=== PATIENT | male | born 1965 | race Caucasian/White ===

== ENCOUNTER → 2019-03-07 | Outpatient (CLI) | payer MEDICARE, MEDICAID | LOC: COL.VAS 10:44 | DX: I65.22 Occlusion and stenosis of left carotid artery (principal); Z86.73 Personal history of transient ischemic attack (TIA), and cerebral infarction without residual deficits | CPT/HCPCS: A9585 ==

== ENCOUNTER 2020-07-20 10:26 | Observation (INO) | payer MEDICARE, MEDICAID ==
[2020-07-20] VITALS (10 sets, daily range): BP systolic 127–177; BP diastolic 64–107; PULSE 80–97; TEMP 97.6–98.4
[~2020-07-20] VITALS: Ht 175.3 cm; Wt 73.9 kg
[2020-07-20] MEDS ORDERED: ALBUTEROL0.83 MG/ML IH (12:13)
[2020-07-20] MEDS ORDERED: PROVENTIL0.09 MG/A1 IH (12:14)
[2020-07-20] MEDS ORDERED: NEUPRO4 MG/24 HR TD (12:15)
[2020-07-20] MEDS ORDERED: PROTONIX 40MG T40 MG PO (12:15)
[2020-07-20] MEDS ORDERED: PRINIVIL40 MG PO (12:16)
[2020-07-20] MEDS ORDERED: SEROQUEL50 MG PO (12:17)
--- NOTE | 2020-07-20 15:10 | NUR ---
PATIENT ARRIVED TO ROOM 345 POST-OP VIA BED. PATIENT ASSISTED UP TO COMMODE AT BEDSIDE. POST-OP MONITORING STABLE. WILL CONTINUE TO MONITOR.
--- NOTE | 2020-07-20 15:50 | NUR ---
PLACING CHEST TUBE AT BEDSIDE.
--- NOTE | 2020-07-20 17:40 | NUR ---
SHIFT ASSESSMENT COMPLETED AT THIS TIME.
--- NOTE | 2020-07-20 18:55 | NUR ---
POST-OP VSS AND COMPLETE. KARYN PRESENT AT THE BEDSIDE. SHIFT REPORT GIVEN TO ALEAH POP.
--- NOTE | 2020-07-20 21:00 | NUR ---
Patient resting in bed at this time. 5 lap sites to his abdomen, edges well approximated. Heimlich chest tube to right chest, dressing clean, dry, and intact. Some complaints of pain to his chest tube site. PRN norco for pain. Patient tolerating his clear liquid diet with no nausea. Bed alarm on and call light in reach.
[2020-07-21 00:21] VITALS: BP 129/58; PULSE 88; TEMP 98.2
[2020-07-21 04:31] VITALS: BP 115/63; PULSE 88; TEMP 98.6
--- NOTE | 2020-07-21 06:45 | NUR ---
awake resting in bed, bedside shift report received from ALEAH Lazcano
[2020-07-21 07:20] LABS: BASO % 0.2 % (0.0-2.0); EOS % 0.1 % (0-4.0); GRAN % 80.8 % (42.2-75.2); HEMATOCRIT 39.4 % (42.0-52.0); HEMOGLOBIN 13.2 g/dl (13.5-18.0); LYMPH # 1.8 (1.2-3.4); LYMPH % 11.4 % (20.0-51.0); MEAN CELL VOLUME 86 fl (80.0-100.0); MEAN CORPUSCULAR HEMOGLOBIN 29 pg (27.0-31.0); MEAN CORPUSCULAR HGB CONC 34 g/dl (33.0-37.0); MEAN PLATELET VOLUME 11.1 fl (7.4-10.4); MONO # 1.1 (0.1-0.6); PLATELET COUNT 253 K/mm3 (130-400); RED BLOOD COUNT 4.61 M/mm3 (4.20-5.60); REDCELL DISTRIBUTION WIDTH-CV 13.5 % (11.5-14.5)
[2020-07-21 07:21] VITALS: BP 140/81; PULSE 78; TEMP 98.7
--- NOTE | 2020-07-21 07:40 | NUR ---
resting in bed, full assessment completed, see interventions for further info, denies chest pain or shortness of breath, hemilich valve tube remains in place, c/o pain 310 to abdomen, port sites are CD&I, umbilical incision with some redness around site, denies needs
[2020-07-21 07:44] LABS: ALBUMIN 3.5 gm/dL (3.5-5.0); BILIRUBIN,TOTAL 0.5 mg/dL (0.0-1.0); CALCIUM 9.1 mg/dL (8.4-10.2); CREATININE, serum 0.99 (0.66-1.25); POTASSIUM 3.8 mmol/L (3.4-5.0); TOTAL PROTEIN 6.3 gm/dL (6.4-8.2)
--- NOTE | 2020-07-21 09:15 | NUR ---
sitting up in bed having clear liquid breakfast, taking without difficulty
--- NOTE | 2020-07-21 09:40 | NUR ---
Initial visit; Patient thanked [employer] for looking in on him and offering God's blessings.
--- NOTE | 2020-07-21 10:02 | NUR ---
DENIZ met with the patient to discuss discharge plan. The patient lives in [place] with his friend, Michaela. He reports independence with ADLs and does not have any DME. He states that he does have a wheelchair ramp. The patient's PCP is Dr. Aden Salguero at the [facility] and he receives his medications from the [facility] in . He reports no difficulties obtaining his meds. The patient's neice, Enedina Clay, then entered the room. The patient does not have a DPOA-HC in EMR, but he states that he does have one completed and that it designates Enedina. Enedina lives in [place], [place]. Enedina states that she will be up here to help the patient for however long she needs to. The patient reports that his PCP's office should have a copy of his DPOA-HC. SW contacted the patient's PCP's office and requested a copy. The patient plans to return home with his friend upon discharge. No additional needs at this time. *Discharge plan: home with friend and niece support*
--- NOTE | 2020-07-21 10:15 | NUR ---
resting in bed, visiting with family
[2020-07-21 11:43] VITALS: BP 154/92; PULSE 96; TEMP 98.6
--- NOTE | 2020-07-21 11:48 | NUR ---
patient has been a high fall risk, he continues to get out of bed and ambulate to bathroom independently, observed him ambulating and he ambulated in [place] with nurse beside him, risk assessment redone and he is now not a high fall risk
--- NOTE | 2020-07-21 13:45 | NUR ---
Dr Claire in and chest tube removed, he tolerated it well, site covered with vaseline guaze and tegaderm by Dr Claire, will plan discharge
[2020-07-21] MEDS ORDERED: ZOFRAN ODT4 MG PO (14:04)
[2020-07-21] MEDS ORDERED: NORCO 325 MG-51 TAB PO (14:04)
[2020-07-21] MEDS ORDERED: DOXYCYCLINE HY100 MG PO (14:05)
--- NOTE | 2020-07-21 14:30 | NUR ---
discharge instructions given to patient and his daughter, verbalizes understanding
--- NOTE | 2020-07-21 14:47 | NUR ---
discharged per WC
== END 2020-07-21 14:47 | disposition home or self-care (01) ==
LOC: SDCO 10:26 → SURG 15:10 → SDCO 07-21 09:03 → SURG 07-21 09:04
PROVIDERS: ADMIT Surgery
DX: K42.9 Umbilical hernia without obstruction or gangrene (principal); K44.9 Diaphragmatic hernia without obstruction or gangrene; J95.811 Postprocedural pneumothorax; E78.5 Hyperlipidemia, unspecified; F32.9 Major depressive disorder, single episode, unspecified; F41.9 Anxiety disorder, unspecified; I69.198 Other sequelae of nontraumatic intracerebral hemorrhage; I69.121 Dysphasia following nontraumatic intracerebral hemorrhage; R26.89 Other abnormalities of gait and mobility; I10 Essential (primary) hypertension; G25.81 Restless legs syndrome; J44.9 Chronic obstructive pulmonary disease, unspecified; I73.00 Raynaud's syndrome without gangrene; K21.9 Gastro-esophageal reflux disease without esophagitis; F17.210 Nicotine dependence, cigarettes, uncomplicated; Z79.899 Other long term (current) drug therapy; Z91.14 Patient's other noncompliance with medication regimen; Z79.82 Long term (current) use of aspirin; Z89.021 Acquired absence of right finger(s)
CPT/HCPCS: OP; G0378; J0360; J0690; J1100; J1170; J1650; J1885; J2250; J2405; J2704; J2795; J3010; J7120